=== PATIENT | female | born 1995 | race African-American/Black ===

== ENCOUNTER 2020-12-20 19:29 | Emergency (ER) | payer OTHER ==
[2020-12-20 19:50] VITALS: BP 107/73; PULSE 110; TEMP 98.3; BMI 23.0
[2020-12-20 22:04] LABS: BASO % 0.7 % (0-2.0); HEMOGLOBIN 13.9 GM/dL (10.7-15.3); LYMPH % 36.1 % (8-40); MCH 26.7 pg (25.7-33.7); MEAN CELL VOLUME 80.7 fl (80-96); MEAN PLT VOLUME 8.8 fl (7.5-11.1); MONO % 8.4 % (3.8-10.2); NEUT % 52.8 % (42.8-82.8); PLATELET COUNT 200 K/MM3 (134-434); RBC 5.21 M/mm3 (3.60-5.2); RDW 14.2 % (11.6-15.6); WHITE BLOOD COUNT 4.6 K/mm3 (4.0-10.0)
[2020-12-20 22:15] LABS: CALCIUM 8.8 mg/dL (8.5-10.1)
[2020-12-20 22:16] LABS: ALBUMIN 3.8 g/dl (3.4-5.0); BLOOD UREA NITROGEN 11.9 mg/dL (7-18)
[2020-12-20 22:19] LABS: CREATININE 0.8 mg/dL (0.55-1.3)
[2020-12-20 22:21] LABS: BILIRUBIN,TOTAL 0.7 mg/dL (0.2-1); TOT PROT 7.4 g/dl (6.4-8.2)
[2020-12-20] MEDS ORDERED: ALBUTEROL SO4 2.5/IPRATROPIUM 0.5 INH SOL 3 ML VIAL.NEB. NEB SCH (22:45)
[2020-12-20] MEDS ORDERED: DOXYCYCLINE HYCLATE 100 MG CAPSULE PO ONE ×2 (23:17→23:19)
[2020-12-20] MEDS ORDERED: metroNIDAZOLE 500 MG TABLET PO ONE (23:17)
[2020-12-20] MEDS ORDERED: metroNIDAZOLE 250 MG TABLET ONE (23:19)
== END 2020-12-21 01:28 | disposition home or self-care (01) ==
LOC: JER 19:29
PROC: 3E0F7GC Introduction of Other Therapeutic Substance into Respiratory Tract, Via Natural or Artificial Opening (ICD-10-PCS; principal; 2020-12-20)
DX: O86.12 Endometritis following delivery (principal)
CPT/HCPCS: 36415; 76856-TC; 80053; 85025; 99283-25